=== PATIENT | female | born 1985 | race African-American/Black ===

== ENCOUNTER 2019-03-28 22:49 | Emergency (ER) | payer MEDICAID, SELFPAY ==
[2019-03-28 22:50] VITALS: BP 162/98; PULSE 105; RESP 18; TEMP 36.8; O2SAT 98; BMI 34.7
[2019-03-28 22:54] VITALS: O2SAT 98
--- NOTE | 2019-03-28 23:02 | RAD_ITS ---
STUDY: X-RAY CHEST REASON FOR EXAM: Female, 33 years old. Coughing for 3 weeks. TECHNIQUE: 2 views COMPARISON: None. FINDINGS: The lungs are clear and expanded. There is no demonstrated pleural abnormality. Normal size heart. Normal mediastinum and juan. Normal visualized pulmonary arteries. Normal visualized aortic arch and descending thoracic aorta. Normal visualized thoracic spine. Normal visualized ribs, clavicles, and shoulders. There is no demonstrated abnormality of the visualized soft tissue structures of the upper abdomen. RAD/Chest PA and Lateral IMPRESSION: Normal x-ray examination of the chest. Electronically Signed: Marsha Freeman MD at 23:30 EDT , Service support ,
--- NOTE | 2019-03-28 23:02 | ED.VISSUMM ---
- ER Visit Summary Date of Service: 03/28/19 Chief Complaint: Cough History of Present Illness: The patient is a 33 F who presents for 3 weeks of cough. Patient states the cough is gradually worsening and at no point did it get better. She is having green sputum. Cough is worse with laying down. She is tried NyQuil without relief. She denies any shortness of breath but does have chest pain associated with the cough. At onset she also had cold-like symptoms, such as congestion and rhinorrhea. She denies fever. Patient denies any unexplained weight gain or any edema of the lower extremities. History of hypertension. Patient is not on an HEIDI inhibitor or an arb. She does smoke. Physical Examination: Vital signs: afebrile, hemodynamically stable, no hypoxia on room air General: well nourished, well developed, in no distress, frequent cough, voice mildly hoarse Skin: warm, dry, no rash, no pallor HEENT: normocephalic and atraumatic; PERRL, EOMI, moist mucous membranes, neck is supple, no lymphadenopathy, nontender, TMs are clear and pearly bilaterally Cardiovascular: Mildly tachycardic rate and rhythm without murmurs, no peripheral edema, 2+ pulses all distal extremities Respiratory: No increased work of breathing, lungs are clear to auscultation bilaterally, no rales, rhonchi or wheezing, no stridor Abdominal: Abdomen is soft, nontender with normoactive bowel sounds, no guarding or rebound, no masses MSK: Moves all extremities, no deformities, normal strength Neuro: Awake and alert, oriented ?4. No facial droop, sensation and motor function intact and symmetric Test Results: Clinical Impression(s) from Imaging Studies Chest X-Ray 03/28/19 23:02 IMPRESSION: Normal x-ray examination of the chest. Electronically Signed: Marsha Freeman MD at 23:30 EDT , Service support , Medications Given Discontinued Medications Benzonatate (Tessalon Perle) 200 mg PO X1 ONE Stop: 03/28/19 23:03 Last Admin: 03/28/19 23:28 Dose: 200 mg Emergency Department Course and Treatment: Patient presents for 3 weeks of constant cough, now productive of green sputum, and worsening, concerning for bacterial infection. Patient did divulge later that she had been seen at urgent care earlier on in the course of the cough and had been prescribed Tessalon. She was already given a dose of Tessalon in the emergency department, and she states it does not work. Chest x-ray was performed that showed no infiltrate or other acute process. Because patient's prolonged course is concerning for progression to a bacterial respiratory infection, patient was started on antibiotic treatment for bacterial bronchitis. She is allergic to penicillins, thus she was given doxycycline. Patient had no diminished sounds, wheezing or other adventitious sounds on her lung exam, thus no breathing treatments were administered and no steroids started. Patient is to follow-up with her doctor if she is not having improvement within 1 week. Patient was discharged home with a prescription for Hycodan due to her frequent persistent cough and to help her get some sleep. Treatment Plan: [] Disposition: [] Impression: Acute bacterial bronchitis This note was generated with [employer] dictation software. It may contain incorrect words, spelling, and punctuation that were not noted in review of the chart prior to signing ED Disposition - Plan for ED Patient: Disposition: Home or Assisted Living Instructions: Acute Bronchitis Prescriptions: Hydrocodone Bit/Homatropine [Hycodan Syrup] 5 ml GT Q6H PRN PRN #100 ml PRN Reason: Cough RX: Doxycycline 100 mg PO BID #14 cap Referrals: Doctor,Your [STAFF PHYSICIAN] - 3-5 Days if not improving Additional Instructions: Use the Hycodan as needed for severe cough. Do not drive or do anything dangerous that would put you or others in danger while on this medication, as it may make you drowsy. Take the antibiotic twice daily for 7 days as prescribed. Follow-up with your doctor in 1 week if you are not having improvement. If you have any worsening of your condition or any new concerning symptoms, please return immediately to the emergency department for another evaluation.
[2019-03-28] MEDS: Benzonatate 100 MG Capsule 200 MG PO (23:28)
[2019-03-29 00:20] VITALS: PULSE 102; RESP 16; O2SAT 98
== END 2019-03-29 00:22 | disposition home or self-care (01) ==
PROVIDERS: Emergency Provider Emergency Medicine; Family Provider Family Medicine; PCP Family Medicine
DX: J20.8 Acute bronchitis due to other specified organisms (principal); I10 Essential (primary) hypertension; Z72.0 Tobacco use; Z79.899 Other long term (current) drug therapy; Z88.0 Allergy status to penicillin
CPT/HCPCS: 71046; 99283

== ENCOUNTER → 2020-03-24 11:33 | Outpatient (CLI) | payer MEDICAID, SELFPAY ==
--- NOTE | 2020-03-24 11:50 | RAD_ITS ---
STUDY: HYSTEROSALPINGOGRAM. REASON FOR EXAM: Female, 34 years old. INFERTILITY FLUOROSCOPY TIME (if supplied): ( 73 seconds ) minutes/seconds TECHNIQUE: A hysterosalpingogram was performed by the stripping and booking machine operator. Imaging was provided. COMPARISON: None. FINDINGS: The uterus is unremarkable. Both fallopian tubes are patent with the spill. RAD/Salpingogram IMPRESSION: Unremarkable hysterosalpingogram. . Electronically Signed: Ronald Maxwell, at 14:28 EDT , Service support ,
== END ==
PROVIDERS: PCP Family Medicine; Referring Provider Obstetrics & Gynecology; Visit Provider Obstetrics & Gynecology
DX: N97.9 Female infertility, unspecified (principal)
CPT/HCPCS: 58340; 74740; Q9967

== ENCOUNTER 2024-12-14 07:37 | Day surgery (SDC) | payer MEDICAID, SELFPAY ==
--- NOTE | 2024-12-13 12:51 | PCM.HP.BLA ---
History and Physical Date of Admission: 12/14/24 Expand All Collapse All Pre-Op History and Physical HPI: The patient is a 39 year old female presenting for pre-operative visit. She is scheduled for Hysteroscopy D&C, polypectomy for AUB, endometrial polyp, anemia on 12/14/24. Procedure discussed along with risks, benefits and complications. Other alternatives discussed for management. Consent form signed? Yes. PAST MEDICAL HISTORY PAST MEDICAL HISTORY Diagnosis Date ? Chronic abdominal pain ? Essential hypertension ? GERD (gastroesophageal reflux disease) 10/06/2016 ? High cholesterol ? Low back pain sees pain management- Dr. Peña in [place] PAST SURGICAL HISTORY PAST SURGICAL HISTORY Procedure Laterality Date ? CERVIX UTERI CONIZA LP ELCTRO EXCI 2018 ? CHOLECYSTECTOMY 10/21/2011 ? COLONOSCOPY 11/21/2010 ? COLONOSCOPY 04/20/2023 repeat in 5 years ? COLONOSCOPY FLX DX W/COLLJ SPEC WHEN PFRMD 10/20/2016 Colonoscopy (MAC) ? EGD 11/21/2010 ? LYSIS OF ADHESIONS 06/21/2012 ? REMOVAL GALLBLADDER CURRENT MEDICATIONS Current Outpatient Medications Medication Sig Dispense Refill ? norethindrone (AYGESTIN) 5 mg tablet Take 1 tab po TID daily until bleeding stops then 1 tab po BID x 3 days then one tab daily x 14 days. 45 tablet 0 ? pravastatin (PRAVACHOL) 40 mg tablet 40 mg. ? metoprolol succinate ER (TOPROL XL) 50 mg 24 hr tablet Take 1 tablet by mouth once daily. 0 No current facility-administered medications for this visit. ALLERGIES: Gabapentin and Penicillin PERSONAL HISTORY: SOCIAL HISTORY Social History Tobacco Use ? Smoking status: Every Day Current packs/day: 0.00 Average packs/day: 0.3 packs/day for 8.0 years (2.0 ttl pk-yrs) Types: Cigarettes Start date: 12/2011 Last attempt to quit: 12/2019 Years since quittin.9 ? Smokeless tobacco: Never ? Tobacco comments: 3/day Vaping Use ? Vaping status: Former Substance Use Topics ? Alcohol use: Yes Comment: occasional ? Drug use: No FAMILY HISTORY: FAMILY HISTORY FAMILY HISTORY Problem Relation Age of Onset ? Diabetes Mother ? Hypertension Mother ? Alcohol/Drug Mother cocaine ? Colon Cancer Mother age 35 ? Ovarian cancer Mother ? other (colostomy) Mother ? Alcohol/Drug Father alcoholic ? other (Other) Father KIDNEY FAILURE ? No Known Problems Sister ? No Known Problems Sister ? No Known Problems Brother ? Hypertension Maternal Grandmother ? Psychiatry Maternal Grandmother ? Cancer Maternal Aunt BREAST CANCER AGE 25 REVIEW OF SYMPTOMS: negative except as noted above PHYSICAL EXAMINATION: VITALS: Blood pressure 128/76, weight 103.9 kg (229 lb), last menstrual period 11/01/2024. GENERAL: The patient is well nourished, well hydrated in no acute distress. , The patient is oriented to time, place, and person. NECK: full range of motion IMPRESSION: 39yo with AUB, Anemia, Endometrial polyp. PLAN: Hysteroscopy, D&C, polypectomy with symphion - continue aygestin until procedure Pt has been counseled on risks/benefits and alternatives of surgery including but not limited to anesthesia, bleeding, infection, uterine perforation with subsequent injury to pelvic structures including bowel, bladder, ureters and vessels. Pt wishes to proceed with surgery at this time. I have reviewed and updated past medical and surgical history, medications and allergies Medical Decision Making: Problems: Moderate: New problem with uncertain prognosis Risk: Moderate: Decision on minor surgery w/ risk factors Medical Decision Making Level: 4 - Moderate Carey Nugent MD
[2024-12-14] VITALS (9 sets, daily range): BP systolic 92–126; BP diastolic 44–80; PULSE 67–80; RESP 14–16; TEMP 36.2; O2SAT 97–100; BMI 37.4
[2024-12-14 08:01] LABS: Internal QC Validated? YES +Cl - CLEAR BKGD; Pregnancy, Urine Negative Negative
[2024-12-14 08:17] LABS: Hemoglobin 11.5 g/dL (12.0-15.0); Mean Corp Hgb Conc 32.9 g/dL (32-36); Mean Corpuscular Volume 97.5 fL (81-99); Mean Platelet Vol. 10.1 fl (6.2-12.0); Platelet Count 370 K/mm3 (150-450); RBC Distribution Width CV 14.1 % (11.6-14.6); RBC Distribution Width SD 49.4 fl (35.1-43.9); Red Blood Count 3.59 M/mm3 (4.2-5.4); White Blood Count 10.4 K/mm3 (4.4-11.0)
--- NOTE | 2024-12-14 08:32 | PCM.PRE.AN2 ---
ASA Classification* ASA Classification ASA Classification: 2 Assessment & Plan Anesthesia* Anesthesia Assessment Anesthesia Assessment: Discussed sedation and/or anesthesia options, risks, benefits, and alternatives with patient/parents/legal guardian/POA. Questions invited. The patient/parents/legal guardian/POA seems to understand and agrees to proceed with anesthesia plan. Reviewed the physical assessment, medical history, allergy history and patient home medications list prior to surgery/procedure/anesthetic and documented any changes. Performed airway and anesthesia risk assessments. Anesthesia Type Anesthesia Type: General and MAC History Source History Obtained from:: Patient Anesthesia Focused Assessment* Temperature: 97.2 F Pulse Rate: 80 Blood Pressure: 126/80 Respiratory Rate: 16 Pulse Ox: 100 Airway Assessment Mouth opens: >3 cm Mallampati Score: I Teeth Condition: Intact Neck Range of motion (ROM): Full ROM Focused Labs Anesthesia Preop lab: CBC WBC 10.4 K/mm3 (4.4-11.0) 12/14/24 08:00 RBC 3.59 M/mm3 (4.2-5.4) L 12/14/24 08:00 Hgb 11.5 g/dL (12.0-15.0) L 12/14/24 08:00 Hct 35.0 % (37-47) L 12/14/24 08:00 Plt Count 370 K/mm3 (150-450) 12/14/24 08:00 CHEMISTRY Potassium 3.5 mmol/L (3.5-5.1) 08/02/16 14:20 Sodium 140 mmol/L (136-145) 08/02/16 14:20 BUN 11 mg/dL (7-18) 08/02/16 14:20 Creatinine 0.67 mg/dL (0.55-1.20) 08/02/16 14:20 Glucose 86 mg/dL (70-110) 08/02/16 14:20 TSH 1.19 uIU/mL (0.358-3.74) 08/02/16 14:20 COAG Urine Test Negative Negative 12/14/24 07:50 Pre-Assessment Diagnosis/Proposed Procedure Planned Operative Procedure(s): Hysteroscopy,D&C, polypectomy, Symphion Anesthesia History Anesthesia History - costumer assistant: Anesthesia History - costumer assistant Hx Hospitalization No 12/05/24 14:24 Any Problems With Anesthesia No 12/05/24 14:24 Cholinesterase deficiency No 12/05/24 14:24 You/Your Family Experience No 12/05/24 14:24 fever (hyperthermia) with Relationship Recent Exposure to Contagious No 12/14/24 07:56 Disease Does patient have nerve No 12/05/24 14:24 stimulator Patient instructed to have device shut off --Does patient have Pacemaker No 12/14/24 07:56 or ICD? When Was Last Pacemaker Check QUESTION #4 FULL TEXT: You/Your Family Experience fever (hyperthermia) with Anesthesia Last Oral Intake Last Oral intake: Last Oral Intake NPO since 06:30 12/14/24 07:56 Meds taken in AM with sips of Yes 12/14/24 07:56 water? Meds patient instructed to see mar 12/14/24 07:56 take am of surgery PONV PONV - costumer assistant: PONV - costumer assistant Female Yes 12/05/24 14:24 HX of Motion Sickness No 12/05/24 14:24 HX of N/V After Surgery No 12/05/24 14:24 Non-Smoker No 12/05/24 14:24 Duration of Surgery greater No 12/05/24 14:24 than 60 minutes Number of Risk Factors 1 12/05/24 14:24 PONV Score Low Risk 12/05/24 14:24 Height & Weight Height & Weight: Anesthesia: Height & Weight Height 5 ft 6 in 12/14/24 07:56 Weight: 105.233 kg 12/14/24 07:56 Body Mass Index (BMI) 37.4 12/14/24 07:56 Respiratory Assessment Respiratory Assessment - costumer assistant: Respiratory Tract Infection Hx - costumer assistant Hx Respiratory Tract Infection No 12/05/24 14:24 STOP Sleep Apnea STOP Sleep Apnea - costumer assistant: STOP Sleep Apnea - costumer assistant Hx Hypertension No 12/05/24 14:24 Hx Sleep Apnea No 12/05/24 14:24 CPAP BIPAP Do you snore loudly (louder No 12/05/24 14:24 than talking or can be heard Do you often feel tired/ No 12/05/24 14:24 fatigued/ sleepy during daytime? Has anyone observed you stop No 12/05/24 14:24 breathing during sleep? STOP Results Negative 12/05/24 14:24 QUESTION #5 FULL TEXT : Do you snore loudly (louder than talking or can be heard through closed doors)? Tobacco Use History Tobacco Use History - costumer assistant: Tobacco Use History - costumer assistant Tobacco Use Smoking Status Light Smoker (<10/day) 12/05/24 14:24 Hx Tobacco Use Yes 12/05/24 14:24 Years Smoking Packs Smoked per Day Smoking Cessation Date was within the last 15 years Hx Smoking Cessation Date Hx Smoking Cessation Counseling Hematologic Medial History Hematologic Hx - costumer assistant: Hematologic Medical Hx - hospitality director Hx of Blood Transfusion No 12/05/24 14:24 Hx of Transfusion in last 3 No 12/05/24 14:24 Months Date of Last Transfusion (if within last 3 months) Ever experience any problems No 12/05/24 14:24 with transfusion(s)? Specify any problems Hx of Preganancy in last 3 No 12/05/24 14:24 Months Nurse Filling Out Transfusion VCHRISTIN 12/05/24 14:24 & Questions: Date: 12/05/24 12/05/24 14:24 Time: 14:25 12/05/24 14:24 Patient unable to answer at this time (ie. confused, unrespo /Reproduction History /Reproductive History - costumer assistant: /Reproductive Hx- costumer assistant Hx Now No 12/05/24 14:24 Gestational Age (in weeks): EDC: Hx Hx Para Hx Section SAB No 12/05/24 14:24 PFSH Medical History History of steroid therapy Anemia Excessive bleeding Back pain Smoker HTN (hypertension) Home Medications ?Medication ?Instructions ?Recorded ?Last Taken ?Type metoprolol succinate 50 mg 50 mg PO DAILY 03/28/19 12/14/24 06:30 History tablet,extended release 24 hr Allergy/AdvReac Type Severity Reaction Status Date / Time gabapentin Allergy Hives Verified 12/14/24 07:55 Penicillins Allergy Hives Verified 12/14/24 07:55 Family History Mother Hypertension Grandmother Diabetes Surgical History History of cholecystectomy Social History household members: children housing: house number of children: 3 Smoking Status: Light Smoker (<10/day) alcohol intake: current alcohol intake frequency: a few times a week what type of physical activity do you participate in: walking frequency: daily do you feel safe at home: Yes Review of Systems (Anesthesia) ROS Narrative System reviewed and no additional complaints, except as documented. Physical Exam Const alert Orientation / Consciousness: awake
--- NOTE | 2024-12-14 09:20 | EMB_PTH ---
PATIENT: SYLVIA GRAY LOC: [facility] [place] U#:[id number] AGE/SX: 39/F ROOM: RE12/14/[address]: Dr. Carey Eldridge, MDDOB: 1985 BED: DIS: 12/14/2024 SPEC #: [id number] RECD: 12/14/24 10:14 STATUS: SHERRY LUIS #: [id number] ANGELA: 12/14/24 09:[address]: Carey Eldridge DEPT: SURGICAL PATHOLOGY RECD BY: Leonela Bush ENTERED: 12/14/24 10:37 SP TYPE: ENDOM BX/C OTHR DR: Dr. Madeleine Alvarado, DO Tissues: Endometrium, NOS Procedures: Surgery Specimen Level IV HEADER OPERATION: Hysteroscopy, D&C, polypectomy PRE-OP DIAGNOSIS: Endometrial polyp, anemia TISSUE SUBMITTED: Endometrial polyp and curettings MICROSCOPIC DIAGNOSIS Endometrial polyp and curettings, D&C and polypectomy: Disordered proliferative endometrium to simple endometrial hyperplasia without atypia. Fragments of myometrium. See comment. 12/17/2024 COMMENT Clinical correlation and appropriate follow up are necessary. MICROSCOPIC DESCRIPTION Slides are reviewed. GROSS DESCRIPTION Received in fixative is one container labeled with the patient's name and designated Endometrial polyp and curettings. The specimen consists of multiple irregular fragments of andujar-pink indurated tissue mixed with hemorrhagic soft tissue that in aggregate measure 7.5 x 3 x 0.3 cm. The specimen is totally submitted in three cassettes. 12/14/2024 TC:5 CPT:50628
--- NOTE | 2024-12-14 09:35 | DCINST_ITS ---
Discharge Instructions Diet Discharge Diet: No restrictions DC O2, CPAP, BIPAP needs Home O2 Discharge instructions: No Dressing / Incision May resume sexual activity in: 1 week Dressing / Incision Call your doctor if you observe: Fever of 101 or Higher, Inability to urinate, Using more than 1 pad per hour and Uncontrolled pain Follow Up Care Please Follow Up With: Carey Eldridge MD When: i will call with pathology results in 1 weeks- if you have any concerns please call to schedule an appointment [phone] Test Results: Test results from this visit will be discussed in further detail at your follow- up appointment, if applicable. Discharge Plan Admission Attending Provider: Carey Eldridge Primary Care Provider: Madeleine Alvarado Instructions Print Language: Turkmen Discharge Orders/Prescriptions Prescriptions: No Action metoprolol succinate 50 MG tablet extended release 24 hr 50 mg PO DAILY Referrals / Follow Up: Madeleine Alvarado DO [Primary Care Provider] - Disposition Disposition (needs filled in before D/C Order can be placed): Home, Self Care
--- NOTE | 2024-12-14 09:36 | PCM.OPRPT ---
Operative Report (Standard) Operative Information Date of Procedure: 12/14/24 Pre-Operative Diagnosis: AUB, acute blood loss anemia, Endometrial polyp Post-Operative Diagnosis: same Surgery/Procedure Performed: hysteroscopy, D&C, polypectomy advisory software engineer: Yes Push Bench Operator Helper: Bennett teresa MS3 Tasks completed by assistant boys track coach: Other (dilating cervix) Additional cook's assistant?: No Type of Anesthesia: MAC RN Documented Start/Stop Times: Operation Date: 12/14/24 09:20 Case Time Into Pre-Op 12/14/24 07:44 Out of Pre-Op 12/14/24 09:05 Anesthesia Start 12/14/24 09:09 Into Room 12/14/24 09:09 Procedure Start 12/14/24 09:20 Procedure End 12/14/24 09:33 Procedure Start Time: 09:20 Procedure Stop Time: 09:33 Select all DRAINS/GRAFTS/IMPLANTS that apply: None Estimated Blood Loss: <5cc Fluids Replaced: none- IVF shortage Specimen collected: Yes Description of specimen(s) removed: Endometrial curettings and Endometrial polyp Description of surgery: Informed consent was obtained the patient was taken the operating room she was placed in supine position. She was given anesthesia. She was then placed in the [facility] where she was prepped and draped in the normal sterile fashion. At this time the weighted speculum was placed in the posterior fornix of vagina. Single-tooth tenaculum was used to gently grasp the anterior lip the cervix. At this time the uterine cavity was sounded to approximately 10 cm. Gentle dilatation was performed once adequate dilatation of the cervix was achieved the hysteroscope using normal saline as a distention medium was placed. Tubal ostia visualized. Endometrium thickened, small polyp noted on posterior aspect of uterus and endocervix Symphion resecting device used to obtain endometrial curettings and to perform polypectomy. Tissue will be sent to pathology for evaluation. Tenaculum removed. Good hemostasis. Instrument, lap count correct x 2. fluid deficit 550cc Vaginal Sweep was negative. Surgical Findings: thickened endometrial tissue, endometrial polyps x2 Complications Complications: No Admit VTE Documentation VTE Present on Admission: Yes VTE Mechan Device Prophylaxis: SCD's VTE Pharm Prophylaxis ordered?: No Reason prophylaxis not ordered: Treatment Not Indicated
--- NOTE | 2024-12-14 09:49 | PCM.POST.ANE ---
Anesthesia: Postop Eval I Current Vital Signs Temperature: 97.2 F Pulse Rate: 75 Blood Pressure: 97/51 Respiratory Rate: 14 Pulse Ox: 97 Assessment Airway patent: Yes Spontaneous unlabored respirations: Yes nausea: No Vomiting: No Anesthesia Complication: No Fluid Hydration Crystalloid volume administer (ml): 20 Total IV fluid infused: 20 Progress Note Anesthesia document: Postop Eval 1 completed: Yes
--- NOTE | 2024-12-14 10:57 | POSTOPAN2_ITS ---
Anesthesia Postop Eval I Sum Postop Eval Completion status Anesthesia document: Postop Eval 1 completed: Yes Anesthesia Postop Eval I Summary Anesthesia Postop Eval I Summary: Anesthesia Postop Eval I: Assessment Summary Airway patent Yes 12/14/24 09:49 ATTENDING [email or web address] Spontaneous unlabored Yes 12/14/24 09:49 ATTENDING [email or web address] respirations Mental status nausea No 12/14/24 09:49 ATTENDING [email or web address] Vomiting No 12/14/24 09:49 ATTENDING [email or web address] Anesthesia Postop Eval I: Fluid Summary Crystalloid volume administer 20 12/14/24 09:49 ATTENDING [email or web address] (ml) Colloids volume administered ( ml) Blood Product volume administered (ml) Total IV fluid infused 20 12/14/24 09:49 ATTENDING [email or web address] Anesthesia Postop Eval I: Summary Notes Anesthesia Complication No 12/14/24 09:49 ATTENDING [email or web address] Anesthesia Complication Comment: Post-operative progress note Anesthesia: Postop Eval II Evaluation Mental status: Awake Pain Level: 0 nausea: No Vomiting: No Complications Anesthesia Complication: No
--- NOTE | 2024-12-14 10:57 | PCM.POSTANE2 ---
Anesthesia Postop Eval I Sum Postop Eval Completion status Anesthesia document: Postop Eval 1 completed: Yes Anesthesia Postop Eval I Summary Anesthesia Postop Eval I Summary: Anesthesia Postop Eval I: Assessment Summary Airway patent Yes 12/14/24 09:49 LOAD [email or web address] Spontaneous unlabored Yes 12/14/24 09:49 LOAD [email or web address] respirations Mental status nausea No 12/14/24 09:49 LOAD [email or web address] Vomiting No 12/14/24 09:49 LOAD [email or web address] Anesthesia Postop Eval I: Fluid Summary Crystalloid volume administer 20 12/14/24 09:49 LOAD [email or web address] (ml) Colloids volume administered ( ml) Blood Product volume administered (ml) Total IV fluid infused 20 12/14/24 09:49 LOAD [email or web address] Anesthesia Postop Eval I: Summary Notes Anesthesia Complication No 12/14/24 09:49 LOAD [email or web address] Anesthesia Complication Comment: Post-operative progress note Anesthesia: Postop Eval II Evaluation Mental status: Awake Pain Level: 0 nausea: No Vomiting: No Complications Anesthesia Complication: No
== END 2024-12-14 10:24 | disposition home or self-care (01) ==
LOC: SDC 07:39 → AC 07:40
PROVIDERS: Anesthesiology; PCP Family Medicine; Referring Provider Obstetrics & Gynecology; Visit Provider Obstetrics & Gynecology
PROC: 0UB98ZZ Excision of Uterus, Via Natural or Artificial Opening Endoscopic (ICD-10-PCS; CPT 58558; principal; 2024-12-14 09:05)
DX: N85.01 Benign endometrial hyperplasia (principal); N93.9 Abnormal uterine and vaginal bleeding, unspecified; I10 Essential (primary) hypertension; F17.210 Nicotine dependence, cigarettes, uncomplicated; Z79.899 Other long term (current) drug therapy
CPT/HCPCS: 58558; 00952; 81025; 85027; 88305; A4216